=== PATIENT | male | born 1955 | race Caucasian/White ===

== ENCOUNTER 2021-08-13 08:49 | Emergency (ER) | payer MEDICARE ==
[~2021-08-13] VITALS: Ht 172.7 cm; Wt 70.3 kg
[2021-08-13 09:42] LABS: HEMOGLOBIN 15.1 gm/dl (14.0-17.5); RED BLOOD COUNT 4.8 M/UL (4.20-5.50); WHITE BLOOD COUNT 7.5 K/UL (4.5-11.0)
[2021-08-13 10:39] LABS: BUN/CREATININE RATIO 12 (0-10)
[2021-08-14 09:02] LABS: HEMOGLOBIN 13.9 gm/dl (14.0-17.5); RED BLOOD COUNT 4.5 M/UL (4.20-5.50); WHITE BLOOD COUNT 6.8 K/UL (4.5-11.0)
== END 2021-08-15 19:00 | disposition short-term general hospital (02) ==
LOC: ER1 08:49
PROVIDERS: Student in an Organized Health Care Education/Training Program
DX: I65.23 Occlusion and stenosis of bilateral carotid arteries (principal); I11.9 Hypertensive heart disease without heart failure; Z20.822 Contact with and (suspected) exposure to COVID-19; Z79.82 Long term (current) use of aspirin; Z79.02 Long term (current) use of antithrombotics/antiplatelets
CPT/HCPCS: 70450; 70496; 70498; 80048; 80053; 82550; 82553; 83874; 84484; 85025; 93005; 93880; 99285; Q9967; U0002